=== PATIENT | female | born 1960 | race African-American/Black ===

== ENCOUNTER 2016-08-24 10:38 | Emergency (ER) | payer MEDICARE ==
[~2016-08-24] VITALS: Ht 170.2 cm; Wt 79.4 kg
[2016-08-24 10:49] VITALS: BP 154/91
[2016-08-24] MEDS ORDERED: TRAM50TA PO (11:06)
[2016-08-24] MEDS ORDERED: VENL25TA PO (11:06)
[2016-08-24] MEDS ORDERED: BENA1TAB6 PO (11:06)
[2016-08-24 11:54] LABS: NEGATIVE OBC STREP NEG; POSITIVE OBC STREP POS
--- NOTE | 2016-08-24 12:17 | PHYS DOC ---
Past Medical History Past Medical History: Depression, Hypertension, Other Additional Past Medical Histor: chronic back pain Past Surgical History: Hysterectomy, Other Additional Past Surgical Histo: back sx x 2, knee sx, hand sx Alcohol Use: None Drug Use: None Adult General Chief Complaint Chief Complaint: SORE THROAT HPI HPI Patient is a 56 year old female who presents with sore throat, cough. Patient reports she has been sick with these symptoms for the past 3 weeks. She also has a mild MESSINA in the front of her head. She denies fever. Patient has tried merari seltzer plus with insufficient relief. She did not get a flu shot this year. She is a smoker. Review of Systems Review of Systems Constitutional: Fatigue. Denies fever or chills Eyes: Denies change in visual acuity or eye pain HENT: Sore throat Respiratory: Cough. Denies shortness of breath Cardiovascular: Denies chest pain GI: Denies abdominal pain, nausea, vomiting, bloody stools or diarrhea : Denies dysuria or hematuria Musculoskeletal: Denies back pain or joint pain Integument: Denies rash or skin lesions Neurologic: Headache. Denies focal weakness or sensory changes Current Medications Current Medications Current Medications Medications (Trade) Dose Ordered Sig/Lino Start Time Stop Time Status Last Admin Dose Admin Benzonatate (Tessalon Perle) 100 mg 1X ONCE 08/24/16 12:30 08/24/16 12:31 DC 08/24/16 12:37 100 MG Levofloxacin (Levaquin) 750 mg 1X ONCE 08/24/16 12:45 08/24/16 12:46 08/24/16 12:38 750 MG Naproxen (Naprosyn) 500 mg 1X ONCE 08/24/16 12:30 08/24/16 12:31 DC 08/24/16 12:37 500 MG Allergies Allergies Allergies Coded Allergies Type Severity Reaction Last Updated Verified No Known Drug Allergies 08/24/16 No Physical Exam Physical Exam Constitutional: Well developed, well nourished, no acute distress, non-toxic appearance HENT: Normocephalic, atraumatic. Oropharynx erythematous without exudate. Tender anterior cervical adenopathy Eyes: PERRL, EOMI, conjunctiva normal, no discharge Neck: Normal range of motion, no stridor Cardiovascular: Heart rate normal, regular rhythm, no murmur Lungs & Thorax: Coarse breath sounds in R base Abdomen: Bowel sounds normal, soft, non-distended, no TTP Skin: Warm, dry, no erythema, no rash Extremities: No obvious deformity, no edema Neurologic: Alert and oriented X 3, no gross deficits noted Current Patient Data Vital Signs Vital Signs Date Time Temp Pulse Resp B/P Pulse Ox O2 Delivery O2 Flow Rate FiO2 08/24/16 10:49 99.0 102 20 96 Room Air 99.0 Lab Values Laboratory Tests Test 08/24/16 11:00 Group A Streptococcus Rapid Negative (NEGATIVE) EKG EKG [] Radiology/Procedures Radiology/Procedures CXR: Impression: Lingular infiltrate, compatible with pneumonia. Course & Med Decision Making Course & Med Decision Making Pertinent Labs and Imaging studies reviewed. (See chart for details) Patient is 56 year old female who presents with sore throat, cough, MESSINA. Likely viral URI. Rapid strep test already performed and was negative. CXR ordered to evaluate for possibility of pneumonia. Dose of naproxen and tessalon ordered for relief of symptoms. CXR results as above. Discussed results with patient. Dose of PO levaquin ordered for abx coverage. Will plan discharge home with rx for course of levaquin, naproxen, hydrocodone/homatropine cough syrup. Given instructions for follow up and strict return precautions. Dragon Disclaimer Dragon Disclaimer This electronic medical record was generated, in whole or in part, using a voice recognition dictation system. Departure Departure Impression: Primary Impression: Pneumonia Additional Impression: Viral syndrome Disposition: 01 HOME, SELF-CARE Condition: STABLE Patient Instructions: Pneumonia, Adult, Viral Syndrome Additional Instructions: Thank you for allowing us to provide care today in the Emergency Department. Take the provided medication as directed. Use caution after taking the cough syrup as it can make you drowsy. Schedule a follow up appointment with your primary care doctor. Return promptly to the Emergency Department if you develop any new or concerning symptoms. Scripts Hydrocodone Bit/Homatrop Me-Br (Hydrocodone-Homatropine Syrup)5 Ml Syrup5 Ml PO Q4HRS PRN COUGH #120 ML Prov:SILVANO CONTE MD 08/24/16 Naproxen 375 Mg [id number] Mg PO BID #20 Prov:SILVANO CONTE MD 08/24/16 Levofloxacin (Levaquin)750 Mg Tablet1 Tab PO DAILY #6 TAB start taking 08/25/16 Prov:SILVANO CONTE MD 08/24/16 Problem Qualifiers SILVANO CONTE MD Aug 24, 2016 12:17
[2016-08-24] MEDS ORDERED: NAPROXEN 500 MG TABLET PO ONE (12:30)
[2016-08-24] MEDS ORDERED: BENZONATATE 100 MG CAPSULE. PO ONE (12:30)
--- NOTE | 2016-08-24 12:30 | RAD ---
Exam: PA and lateral chest radiograph History: Cough and sore throat for 3 weeks. Comparison: None. Findings: Cardiomediastinal silhouette is within normal limits for size. There is a left frontal view, there is an infiltrate in the lower left lung field, probably involving the lingula. No pleural effusion is seen. Impression: Lingular infiltrate, compatible with pneumonia.
[2016-08-24] MEDS ORDERED: LEVO750T31 PO (12:39)
[2016-08-24] MEDS ORDERED: NAPR375T3 PO (12:39)
[2016-08-24] MEDS ORDERED: HYDR5SYR PO (12:39)
[2016-08-24] MEDS ORDERED: LEVOFLOXACIN 750 MG TABLET. PO ONE (12:45)
== END 2016-08-24 12:46 | disposition home or self-care (01) ==
LOC: ER 10:38
DX: J12.9 Viral pneumonia, unspecified (principal); I10 Essential (primary) hypertension; F32.9 Major depressive disorder, single episode, unspecified; G89.29 Other chronic pain
CPT/HCPCS: 71020; 87070; 87880; 99285-25